=== PATIENT | female | born 1990 | race Caucasian/White ===

== ENCOUNTER 2019-08-12 13:09 | Emergency (ER) | payer MEDICAID ==
[~2019-08-12] VITALS: Ht 152.4 cm; Wt 48.7 kg
[~2019-08-12 13:09] MED LIST: ACCU FS; Insulin Aspart, Recombinant SUBQ; LEVEMIR SUBQ
[2019-08-12 13:53] VITALS: BP 129/88
[2019-08-12] MEDS ORDERED: KETOROLAC 30 MG/ML VIAL IM ONE (14:50)
[2019-08-12 15:42] VITALS: BP 123/68
== END 2019-08-12 15:42 | disposition home or self-care (01) ==
LOC: MED 13:09
DX: N61.0 Mastitis without abscess (principal); J45.909 Unspecified asthma, uncomplicated; E11.9 Type 2 diabetes mellitus without complications; Z98.890 Other specified postprocedural states; Z79.4 Long term (current) use of insulin; Z79.899 Other long term (current) drug therapy
CPT/HCPCS: 81002; 81025; 96372; 99283; J1885

== ENCOUNTER 2019-12-08 12:53 | Emergency (ER) | payer MEDICAID ==
[~2019-12-08] VITALS: Ht 152.4 cm; Wt 48.5 kg
[2019-12-08 12:58] VITALS: BP 112/76
--- NOTE | 2019-12-08 13:19 | NUR ---
WAIT AT LOBBY
--- NOTE | 2019-12-08 13:32 | NUR ---
PT AMBULATED TO CHAIR C
--- NOTE | 2019-12-08 13:54 | NUR ---
C/O RIGHT HAND PAIN & TINGLING RADIATINFG TO RIGHT FOREARM XTODAY. DENIES TRAUMA. FBS 198. PMH: DM TYPE I
--- NOTE | 2019-12-08 14:35 | NUR ---
APPLIED ULNAR GUTTER SPLINT AND SLING TO RIGHT ARM WITHOUT ANY ISSUES
[2019-12-08 14:40] VITALS: BP 112/76
--- NOTE | 2019-12-08 14:41 | NUR ---
Patient discharged by Art RN with v/s stable. Written and verbal after care instructions about ulner nerve contusion given and explained. Patient verbalized understanding. Ambulatory with steady gait. All questions addressed prior to discharge. Advised to follow up with PMD.
--- NOTE | 2019-12-08 14:45 | NUR ---
Judy olivas in ED - 12/08/19 at 1445 by MED APPLIED ULNAR GUTTER SPLINT AND SLING TO RIGHT ARM WITHOUT ANY ISSUES
== END 2019-12-08 14:43 | disposition home or self-care (01) ==
LOC: MED 12:53
DX: G56.21 Lesion of ulnar nerve, right upper limb (principal); J45.909 Unspecified asthma, uncomplicated; E11.9 Type 2 diabetes mellitus without complications; Z79.4 Long term (current) use of insulin; Z79.899 Other long term (current) drug therapy
CPT/HCPCS: 73130; 99283